=== PATIENT | female | born 1990 | race African-American/Black ===

== ENCOUNTER 2018-08-12 18:52 | Observation (INO) | payer OTHER ==
[~2018-08-12] VITALS: Ht 167.6 cm; Wt 124.3 kg
[2018-08-12] MEDS ORDERED: PNV1TABL50 MT (19:15)
[2018-08-12] MEDS ORDERED: ACETAMINOPHEN 500MG TABLET PO SCH (20:00)
[2018-08-12] MEDS ORDERED: SODIUM CHLORIDE 0.9% 1,000 ML IV SCH (20:00)
== END 2018-08-12 22:00 | disposition home or self-care (01) ==
LOC: 8 EST LDRP 18:52 → INTOOBSV 18:52
PROVIDERS: ADMIT Specialist; ATTEND Specialist
DX: O26.892 Other specified pregnancy related conditions, second trimester (principal); R10.30 Lower abdominal pain, unspecified; Z3A.22 22 weeks gestation of pregnancy
CPT/HCPCS: 76805; G0378

== ENCOUNTER 2023-11-10 09:03 | Emergency (ER) | payer MEDICAID, OTHER ==
[~2023-11-10] VITALS: Ht 172.7 cm; Wt 125.0 kg
[~2023-11-10 09:03] MED LIST: PNV1TABL50 MT
[2023-11-10 09:13] VITALS: O2SAT 99
[2023-11-10 09:29] LABS: BASOPHILS % 0.5 % (0.0-2.0); HEMATOCRIT. 35.6 % (36.0-48.0); HEMOGLOBIN. 11.1 g/dL (12.0-16.0); LYMPHOCYTES % 45.9 % (20.0-50.0); MEAN CORPUSCULAR HEMOGLOBIN 25.2 pg (28.0-32.0); MEAN CORPUSCULAR HGB CONC 31.3 g/dL (31.0-37.0); MEAN CORPUSCULAR VOLUME 80.4 fL (81.0-99.0); MEAN PLATELET VOLUME 8.7 fl (7.4-10.4); MONOCYTES % 9.5 % (2.0-8.0); NEUTROPHILS % 41.1 % (40.0-76.0); PLATELET 275 x1000/uL (130-400); RED BLOOD CELL COUNT 4.43 mill/uL (4.2-5.4); RED CELL DISTRIBUTION WIDTH 14.2 % (11.6-14.6); WHITE BLOOD COUNT 5.6 x1000/uL (4.5-11.0)
[2023-11-10 09:34] LABS: CHLORIDE 109 mEq/L (98-107); POTASSIUM 4.2 mEq/L (3.5-5.1); SODIUM 138 mEq/L (136-145)
[2023-11-10 09:35] LABS: CARBON DIOXIDE 26 mEq/L (21-32)
[2023-11-10 09:36] LABS: CALCIUM 9.1 mg/dL (8.7-10.4)
[2023-11-10 09:40] LABS: CREATININE 0.7 mg/dL (0.6-1.0); GLUCOSE 89 mg/dL (70-105); UREA NITROGEN BLOOD 11 mg/dL (9-23)
[2023-11-10] MEDS ORDERED: METOCLOPRAMIDE HCL 10MG/2ML VIAL IV ONE (10:00)
[2023-11-10] MEDS ORDERED: ASPIRIN 81MG TABLET PO ONE (10:00)
[2023-11-10 10:04] LABS: TROPONIN I HIGH SENSITIVITY < 4 ng/L (3.0-34)
[2023-11-10 10:26] LABS: HCG SCREEN NEGATIVE
[2023-11-10 12:03] VITALS: TEMP 98.6
[2023-11-10] MEDS: ACETAMINOPHEN 325MG TABLET PO ONE (12:03)
[2023-11-10] MEDS: METOCLOPRAMIDE HCL 10MG/2ML VIAL IV NR (12:03)
[2023-11-10] MEDS: ASPIRIN 325MG TABLET PO NR (12:03)
[2023-11-10 12:04] VITALS: BP 129/84; PULSE 78; RESP 15
[2023-11-10] MEDS: KETOROLAC 15MG/ML VIAL IV ONE (12:04)
== END 2023-11-10 13:03 | disposition short-term general hospital (02) ==
LOC: ER 09:03 → CANBEDREQ 13:22
DX: R07.9 Chest pain, unspecified (principal); M54.2 Cervicalgia; E66.01 Morbid (severe) obesity due to excess calories; J45.909 Unspecified asthma, uncomplicated; Z82.49 Family history of ischemic heart disease and other diseases of the circulatory system
CPT/HCPCS: 99285; 96374; 71045; 96375; 80048; 84703; 85025; 84484; 36415; 93005; J1885; J2765

== ENCOUNTER 2025-01-10 12:39 | Emergency (ER) | payer MEDICAID, OTHER ==
[~2025-01-10] VITALS: Ht 167.6 cm; Wt 150.0 kg
[2025-01-10 12:55] VITALS: O2SAT 100
[2025-01-10 14:39] LABS: BASOPHILS % 0.8 % (0.0-2.0); EOSINOPHILS % 1.9 % (0.0-5.0); HEMATOCRIT. 35.5 % (36.0-48.0); HEMOGLOBIN. 11.3 g/dL (12.0-16.0); LYMPHOCYTES % 31.6 % (20.0-50.0); MEAN PLATELET VOLUME 9.1 fl (7.4-10.4); MONOCYTES % 6.9 % (2.0-8.0); NEUTROPHILS % 58.8 % (40.0-76.0); PLATELET 303 x1000/uL (130-400); RED BLOOD CELL COUNT 4.52 mill/uL (4.2-5.4); RED CELL DISTRIBUTION WIDTH 15.3 % (11.6-14.6)
[2025-01-10 14:39] LABS: CLARITY URINE CLOUDY (CLEAR); COLOR URINE YELLOW (YELLOW); GLUCOSE URINE NEGATIVE (NEGATIVE); KETONES URINE TRACE (NEGATIVE); LEUKOCYTE ESTERASE URINE 1+ (NEGATIVE); NITRITE URINE NEGATIVE (NEGATIVE); OCCULT BLOOD URINE NEGATIVE (NEGATIVE); PH URINE 7.5 (4.5-8.0); PROTEIN URINE NEGATIVE (NEGATIVE); SPECIFIC GRAVITY URINE 1.022 (1.005-1.030); UROBILINOGEN URINE 1.0 E.U./dL (0.2-1.0)
[2025-01-10 14:55] LABS: HCG SCREEN NEGATIVE
[2025-01-10 14:56] LABS: CREATININE 0.8 mg/dL (0.6-1.0); UREA NITROGEN BLOOD 10 mg/dL (9-23)
[2025-01-10 14:59] LABS: INR 1.0
[2025-01-10 15:02] LABS: BACTERIA URINE 4+; RBC URINE 0-2 /hpf (0-2); SQUAMOUS EPITHELIAL CELL URINE 3+ /lpf (RARE/1+); YEAST URINE NONE SEEN
[2025-01-10] MEDS ORDERED: CEPH500T MT (15:35)
[2025-01-10 15:55] VITALS: BP 138/69; PULSE 96; RESP 17; TEMP 36.6; O2SAT 100
[2025-01-10] MEDS: CEPHALEXIN 250MG CAPSULE PO ONE (16:03)
== END 2025-01-10 16:06 | disposition home or self-care (01) ==
LOC: ER 12:39
DX: N39.0 Urinary tract infection, site not specified (principal); J45.909 Unspecified asthma, uncomplicated; F10.90 Alcohol use, unspecified, uncomplicated; Y90.9 Presence of alcohol in blood, level not specified
CPT/HCPCS: 36415; 71045; 80048; 81003; 84703; 85025; 87077; 87186; 93971; 99284